=== PATIENT | female | born 1975 | race Caucasian/White ===

== ENCOUNTER 2019-12-17 15:55 | Emergency (ER) | payer OTHER ==
[2019-12-17] MEDS ORDERED: Sodium Chloride 0.9% 10 ML Syringe FLUSH PRN (15:56)
--- NOTE | 2019-12-17 16:08 | EDM.PDOC ---
ED HPI GENERAL MEDICAL PROBLEM - General Stated Complaint: chest pain Time Seen by Provider: 12/17/19 16:00 Source of Information: Reports: Patient, RN, RN Notes Reviewed History Limitations: Reports: No Limitations - History of Present Illness INITIAL COMMENTS - FREE TEXT/NARRATIVE: Patient presents to ER with complaint of chest pain that radiates to the back. Patient rates the pain a 6-7/10. She states the pain began at approximately 3 PM today. States she last ate lunch, a salad with bueno on it. Patient denies having any problems with indigestion or GERD. Patient states she has a history of hypertension but has been controlled with medications for several years. Patient states she has been having quite a bit of stress at work. Denies radiation down the left arm or into the neck or jaw. Patient states she does still have her gallbladder. Onset: Today, Sudden Onset Time: 15:00 Duration: Constant Location: Reports: Chest, Back Quality: Reports: Throbbing Severity: Moderate Anterior Chest Pain Score (Numeric/FACES): 6 - Related Data Allergies Allergy/AdvReac Type Severity Reaction Status Date / Time No Known Allergies Allergy Verified 12/17/19 16:07 Home Meds: Home Meds Melatonin 1 tab PO BEDTIME 05/27/15 [History] Multivit with Calcium,Iron,Min [Essential Daily] 1 tab PO DAILY 05/27/15 [ History] Propranolol HCl [Inderal LA] 60 mg PO DAILY 05/27/15 [History] Psyllium Husk [Natural Fiber] 1 cap PO ASDIRECTED PRN 05/27/15 [History] Venlafaxine HCl [Venlafaxine ER] 150 mg PO DAILY 05/27/15 [History] Spironolactone [Aldactone] 100 mg PO DAILY 12/17/19 [History] ED ROS GENERAL - Review of Systems Review Of Systems: Comprehensive ROS is negative, except as noted in HPI. ED EXAM, GENERAL - Physical Exam Exam: See Below Exam Limited By: No Limitations General Appearance: Alert, WD/WN, Mild Distress Eye Exam: Bilateral Eye: EOMI, Normal Inspection Ears: Normal External Exam, Hearing Grossly Normal Nose: Normal Inspection Throat/Mouth: Normal Inspection, Normal Voice, No Airway Compromise Head: Atraumatic, Normocephalic Neck: Normal Inspection, Supple, Non-Tender, Full Range of Motion Respiratory/Chest: No Respiratory Distress, Lungs Clear, Normal Breath Sounds, No Accessory Muscle Use, Chest Non-Tender, Other (tender epigastric) Cardiovascular: Normal Peripheral Pulses, Regular Rate, Rhythm, No Edema, No Gallop, No JVD, No Murmur, No Rub Peripheral Pulses: 2+: Radial (L), Radial (R) GI/Abdominal: Normal Bowel Sounds, Soft, No Organomegaly, No Distention, No Abnormal Bruit, No Mass, Pelvis Stable, Tender (epigastric) (Female) Exam: Deferred Rectal (Female) Exam: Deferred Back Exam: Normal Inspection, Full Range of Motion, NT Extremities: Normal Inspection, Normal Range of Motion, Non-Tender, Normal Capillary Refill, No Pedal Edema Neurological: Alert, Oriented, CN II-XII Intact, Normal Cognition, Normal Gait, Normal Reflexes, No Motor/Sensory Deficits Psychiatric: Normal Affect, Normal Mood, Anxious Skin Exam: Warm, Dry, Intact, Normal Color, No Rash Lymphatic: No Adenopathy Course - Vital Signs Last Recorded V/S: Last Vital Signs Temp 97 F 12/17/19 15:57 Pulse 97 12/17/19 15:57 Resp 16 12/17/19 15:57 BP 139/97 H 12/17/19 16:27 Pulse Ox 98 12/17/19 15:57 - Orders/Labs/Meds Orders: Active Orders 24 hr Category Date Time Status EKG Documentation Completion [RC] STAT Care 12/17/19 15:56 Active Peripheral IV Care [RC] . DIRECTED Care 12/17/19 15:58 Active Peripheral IV Insertion Adult [OM.PC] Stat Oth 12/17/19 15:56 Ordered Labs: Laboratory Tests 12/17/19 12/17/19 12/17/19 Range/Units 16:13 16:13 16:13 WBC 6.6 (5.0-10.0) 10^3/uL RBC 4.55 (4.2-5.4) 10^6/uL Hgb 14.1 (12.0-16.0) g/dL Hct 41.8 (37.0-47.0) % MCV 91.9 (80-100) fL MCH 31.0 (27.0-34.0) pg MCHC 33.7 (33.0-35.0) g/dL Plt Count 265 D (150-450) 10^3/uL Neut % (Auto) 55.6 (42.2-75.2) % Lymph % (Auto) 35.5 (20.5-50.1) % Troup % (Auto) 6.9 (2-8) % Eos % (Auto) 1.8 (1.0-3.0) % Baso % (Auto) 0.2 (0.0-1.0) % PT 10.4 (9.0-12.0) SEC INR 1.1 (0.9-1.2) Sodium 139 (136-145) mmol/L Potassium 4.2 (3.5-5.1) mmol/L Chloride 102 (98-107) mmol/L Carbon Dioxide 30 (21-32) mmol/L Anion Gap 11.2 (7-13) mEq/L BUN 11 (7-18) mg/dL Creatinine 0.97 (0.55-1.02) mg/dL Est Cr Clr Drug Dosing 69.29 mL/min Estimated GFR (MDRD) > 60 BUN/Creatinine Ratio 11.3 (No establ ref range) Glucose 88 (74-99) mg/dL Calcium 8.9 (8.5-10.1) mg/dL Total Bilirubin 0.5 (0.2-1.0) mg/dL AST 83 H (15-37) U/L ALT 59 (14-59) U/L Alkaline Phosphatase 82 (46-116) U/L Troponin I < 0.017 (0.000-0.056) ng/mL Total Protein 7.3 (6.4-8.2) g/dL Albumin 3.7 (3.4-5.0) g/dL Globulin 3.6 Albumin/Globulin Ratio 1.0 Amylase (25-115) U/L Lipase (73-393) U/L /15/ Range/Units 16:13 WBC (5.0-10.0) 10^3/uL RBC (4.2-5.4) 10^6/uL Hgb (12.0-16.0) g/dL Hct (37.0-47.0) % MCV (80-100) fL MCH (27.0-34.0) pg MCHC (33.0-35.0) g/dL Plt Count (150-450) 10^3/uL Neut % (Auto) (42.2-75.2) % Lymph % (Auto) (20.5-50.1) % Troup % (Auto) (2-8) % Eos % (Auto) (1.0-3.0) % Baso % (Auto) (0.0-1.0) % PT (9.0-12.0) SEC INR (0.9-1.2) Sodium (136-145) mmol/L Potassium (3.5-5.1) mmol/L Chloride (98-107) mmol/L Carbon Dioxide (21-32) mmol/L Anion Gap (7-13) mEq/L BUN (7-18) mg/dL Creatinine (0.55-1.02) mg/dL Est Cr Clr Drug Dosing mL/min Estimated GFR (MDRD) BUN/Creatinine Ratio (No establ ref range) Glucose (74-99) mg/dL Calcium (8.5-10.1) mg/dL Total Bilirubin (0.2-1.0) mg/dL AST (15-37) U/L ALT (14-59) U/L Alkaline Phosphatase (46-116) U/L Troponin I (0.000-0.056) ng/mL Total Protein (6.4-8.2) g/dL Albumin (3.4-5.0) g/dL Globulin Albumin/Globulin Ratio Amylase 35 (25-115) U/L Lipase 153 (73-393) U/L Meds: Medications Discontinued Medications Generic Name Dose Route Start Last Admin Trade Name Freq PRN Reason Stop Dose Admin Al Hydroxide/Mg Hydroxide 30 ml 12/17/19 16:47 12/17/19 16:55 Gi Cocktail PO 12/17/19 16:48 30 ml ONETIME ONE Administration Nitroglycerin 0.4 mg 12/17/19 16:23 12/17/19 16:27 Nitrostat SL 12/17/19 16:24 0.4 mg Q5M ONE Administration Sodium Chloride 10 ml 12/17/19 15:56 12/17/19 16:16 Saline Flush FLUSH 10 ml ASDIRECTED PRN Administration Keep Vein Open - Radiology Interpretation Free Text/Narrative:: Chest xray: 1. Normal cardiac silhouette and bony thorax, external cardiac rehabilitation program director leads. 2. No pulmonary vascular congestion, cephalization of flow, alveolar edema or pleural effusion. 3. No new lung mass, hilar lymphadenopathy or focal lobar pneumonia compared to August 05, 2009 film. 4. No atelectasis/collapse. No pneumothorax or pneumomediastinum. See rad report - Re-Assessments/Exams Free Text/Narrative Re-Assessment/Exam: 12/17/19 17:00 Patient states pain decreased to a 3/10 after nitro. Blood pressure down to 120 /78 from 140/100. Departure - Departure Time of Disposition: 17:55 Disposition: Home, Self-Care 01 Reason for Transfer *Q: Other Condition: Good Clinical Impression: Gastroesophageal reflux disease Qualifiers: Esophagitis presence: esophagitis presence not specified Qualified Code(s): K21.9 - Gastro-esophageal reflux disease without esophagitis Hypertension Qualifiers: Hypertension type: unspecified Qualified Code(s): I10 - Essential (primary) hypertension Instructions: Indigestion, [id number], Food Choices for Gastroesophageal Reflux Disease, Adult, [id number], Nonspecific Chest Pain, Adult, [id number] , Hypertension, Adult, [id number] Referrals: PCP,Unobtain [Primary Care Provider] - Forms: ED Department Discharge Additional Instructions: Return to the ER immediately if any further symptoms Follow up with your primary care facllity May use over the counter Prilosec as directed Sepsis Event Note (ED) - Focused Exam Vital Signs: Vital Signs Temp Pulse Resp BP BP Pulse Ox 12/17/19 16:27 139/97 H 12/17/19 15:57 97 F 97 16 144/105 H 98 - My Orders Last 24 Hours: My Active Orders 12/17/19 15:56 EKG Documentation Completion [RC] STAT Peripheral IV Insertion Adult [OM.PC] Stat 12/17/19 15:58 Peripheral IV Care [RC] . DIRECTED - Assessment/Plan Last 24 Hours: My Active Orders 12/17/19 15:56 EKG Documentation Completion [RC] STAT Peripheral IV Insertion Adult [OM.PC] Stat 12/17/19 15:58 Peripheral IV Care [RC] . DIRECTED
[2019-12-17 16:17] VITALS: PULSE 97
[2019-12-17] MEDS ORDERED: Nitroglycerin 0.4 MG Tab.SL SL ONE (16:23)
[2019-12-17 16:28] VITALS: BP 139/97
--- NOTE | 2019-12-17 16:35 | CR ---
EXAMINATION: Chest 1V Frontal SEX: Female AGE: 44 years CLINICAL HISTORY: 44-year-old female with chest pain. Comparison 05 August 2009. INTERPRETATION: Negative. 1. 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 2. No pulmonary vascular congestion, cephalization of flow, alveolar edema or pleural effusion. 3. No new lung mass, hilar lymphadenopathy or focal lobar pneumonia compared (05 August 2009). 4. No atelectasis/collapse. No pneumothorax or pneumomediastinum.
[2019-12-17 16:43] LABS: ANION GAP 11.2 mEq/L (7-13); CHLORIDE,CL 102 mmol/L (98-107); SODIUM,NA 139 mmol/L (136-145)
[2019-12-17] MEDS ORDERED: GI Cocktail Oral Solution 30 ML PO ONE (16:47)
== END 2019-12-17 17:55 | disposition home or self-care (01) ==
LOC: DL.ED 15:55
DX: K21.9 Gastro-esophageal reflux disease without esophagitis (principal); I10 Essential (primary) hypertension; Z79.899 Other long term (current) drug therapy
CPT/HCPCS: 36415; 71045; 80053; 82150; 83690; 84484; 85025; 85610; 93005; 99285; A9270

== ENCOUNTER 2024-06-09 08:09 | Emergency (ER) | payer BC, OTHER ==
[2024-06-09 08:58] LABS: BASOPHILS PERCENT AUTO 0.1 % (0.0-1.0); EOSINOPHILS PERCENT AUTO 0.7 % (1.0-3.0); HEMATOCRIT 40.9 % (37.0-47.0); HEMOGLOBIN 13.5 g/dL (12.0-16.0); LYMPHOCYTES PERCENT AUTO 14.4 % (20.5-50.1); MEAN CORPUSCULAR VOLUME 93.8 fL (80-100); NEUTROPHILS PERCENT AUTO 79.8 % (42.2-75.2); PLATELET COUNT,PLT 213 10^3/uL (150-450); RED BLOOD CELL COUNT 4.36 10^6/uL (4.2-5.4); WHITE BLOOD CELL COUNT,WBC 7.1 10^3/uL (5.0-10.0)
[2024-06-09] MEDS: Aluminum Hydroxide/Magnesium Hydroxide/Simethicone Susp 30 ML Cup PO ONE (09:08)
[2024-06-09] MEDS: Lidocaine 2% Viscous Solution 15 ML UD PO ONE (09:09)
[2024-06-09] MEDS: Pantoprazole 40 MG in Sodium Chloride 0.9% 100 ML IV SCH (09:09)
[2024-06-09] MEDS: Ondansetron 4 MG Tab.DIS PO ONE (09:09)
[2024-06-09] MEDS: Pantoprazole 40 MG Vial IVPUSH ONE (09:13)
[2024-06-09 09:21] LABS: ALBUMIN 3.7 g/dL (3.4-5.0); ANION GAP 12.6 mEq/L (7-13); BILIRUBIN TOTAL 1.3 mg/dL (0.2-1.0); BUN/CREATININE RATIO 12.9 (No establ ref range); CALCIUM 9.1 mg/dL (8.5-10.1); CREATININE 0.85 mg/dL (0.55-1.02); EST CRCL DRUG DOSING (CG) 77.85 mL/min; POTASSIUM,K 4.6 mmol/L (3.5-5.1); PROTEIN TOTAL,TP 7.3 g/dL (6.4-8.2)
== END 2024-06-09 10:40 | disposition home or self-care (01) ==
LOC: DL.ED 08:09
DX: R10.13 Epigastric pain (principal); Z79.899 Other long term (current) drug therapy
CPT/HCPCS: 36415; 71045; 80053; 83690; 84484; 85025; 93005; 96374; 99284; A9270; J2470; 93010; J3490

== ENCOUNTER 2024-08-23 05:52 | Day surgery (SDC) | payer BC ==
[2024-08-23] MEDS ORDERED: fentaNYL 100 MCG/2 ML SDV IV ONE (06:16)
[2024-08-23] MEDS ORDERED: Midazolam 1 MG/ML 2 ML SDV ONE (06:16)
[2024-08-23] MEDS ORDERED: Midazolam 1 MG/ML 2 ML SDV IV ONE (06:16)
[2024-08-23] MEDS ORDERED: fentaNYL 100 MCG/2 ML SDV ONE (06:19)
[2024-08-23] MEDS: Dextrose 5%-0.45% NaCl 1,000 ML IV SCH (06:27)
[2024-08-23] MEDS: fentaNYL 100 MCG/2 ML SDV IV ONE ×2 (07:10→07:11)
[2024-08-23] MEDS: Midazolam 1 MG/ML 2 ML SDV IV ONE ×2 (07:12→07:13)
== END 2024-08-23 08:40 | disposition home or self-care (01) ==
LOC: DL.ENDO 05:52
PROVIDERS: ATTEND Internal Medicine Gastroenterology
DX: R12 Heartburn (principal); K21.9 Gastro-esophageal reflux disease without esophagitis; K62.5 Hemorrhage of anus and rectum; F41.1 Generalized anxiety disorder; E66.09 Other obesity due to excess calories; Z68.30 Body mass index [BMI] 30.0-30.9, adult; R10.9 Unspecified abdominal pain
CPT/HCPCS: 43239; J2250; J3010; J7799

== ENCOUNTER 2024-08-24 05:51 | Day surgery (SDC) | payer BC ==
[2024-08-24] MEDS: Dextrose 5%-0.45% NaCl 1,000 ML IV SCH (06:10)
[2024-08-24] MEDS ORDERED: Midazolam 1 MG/ML 2 ML SDV IV ONE (06:11)
[2024-08-24] MEDS ORDERED: fentaNYL 100 MCG/2 ML SDV ONE (06:11)
[2024-08-24] MEDS ORDERED: fentaNYL 100 MCG/2 ML SDV IV ONE (06:11)
[2024-08-24] MEDS ORDERED: Midazolam 1 MG/ML 2 ML SDV ONE (06:11)
[2024-08-24] MEDS: fentaNYL 100 MCG/2 ML SDV IV ONE ×6 (06:26→06:43)
[2024-08-24] MEDS: Midazolam 1 MG/ML 2 ML SDV IV ONE ×8 (06:27→06:48)
== END 2024-08-24 09:00 | disposition home or self-care (01) ==
LOC: DL.ENDO 05:51
PROVIDERS: ATTEND Internal Medicine Gastroenterology
DX: K62.5 Hemorrhage of anus and rectum (principal); K64.4 Residual hemorrhoidal skin tags; K21.9 Gastro-esophageal reflux disease without esophagitis; F41.1 Generalized anxiety disorder; E66.09 Other obesity due to excess calories; Z68.30 Body mass index [BMI] 30.0-30.9, adult
CPT/HCPCS: 45378; J2250; J3010; J7799